=== PATIENT | female | born 1975 | race Two or more races ===

== ENCOUNTER 2023-09-19 09:43 | Emergency (ER) | payer BC, SELFPAY ==
[2023-09-19 09:46] VITALS: BP 102/70
--- NOTE | 2023-09-19 10:57 | ED.GENMED ---
Addendum entered and electronically signed by Jose Elias Florez DO 09/20/23 16:11:
late entry
dave by myself prior to dc, i reevaluated pt, she was feeling much better after IVF
she will try meclizine and continue vestibular PT
Original Note:
History of Present Illness
<Konstantin Munroe MD, Resident - Last Filed: 09/19/23 14:23>
General
Chief Complaint: Dizziness
Source: patient
Time Seen by Provider: 09/19/23 10:28
History of Present Illness
History of Present Illness:
47-year-old female with history of JOSH and vitamin D deficiency presents to the ED with complaints of dizziness. Patient states that since April she has been experiencing dizziness. She describes dizziness as room spinning which close when she
gets up from her bed and changes of position from sitting to standing. She also feels the room is spinning when she looks up at the cabinet to grab something or turning her head towards the side. Patient states that she was evaluated by her PCP
and was dx with peripheral vertigo. She did physiotherapy which helped a little. She was not prescribed any medication. She admits to bandlike pressure sensation over frontotemporal. She denies double vision, blurry vision, weakness, nausea,
vomiting, neck pain. Patient states that she experiences dizziness with brisk walking for a mile and becomes off balance.
If applicable-neuro sx onset
Date of onset of symptoms: 04/14/23
Past History
<Konstantin Munroe MD, Resident - Last Filed: 09/19/23 14:23>
Past History
ED Past Medical History: None and Other
Phy Exam
<Konstantin Munroe MD, Resident - Last Filed: 09/19/23 14:23>
General Physical Exam
General Presentation: well appearing and no apparent distress
General age: appears stated age
General Habitus: normal
General Mental: alert
General Hydration: appears well hydrated
ENT Exam
ENT Exam: TM's normal
Eye Exam
Eye Exam: PERRL and other (horizontal nystagmus, no vertical nystagmus, no skew )
Eye Exam General: lateral nystagmus: bilateral
Cardiovascular Exam
Cardiovascular Exam: regular rate/rhythm and no murmur
Pulmonary Exam
Pulmonary Exam: lungs clear
Gastrointestinal Exam
Gastrointestinal Exam: normal bowel sounds, non tender, soft and non distended
Course
<Konstantin Munroe MD, Resident - Last Filed: 09/19/23 14:23>
Orders/Labs/Results
Orders:
Orders
09/19/23 09:49
Electrocardiogram (*1) Urgent
Reason for Study: Chest Pain
EKG- Treatment ONCE
09/19/23 10:55
Meclizine [Antivert] 25 mg PO NOW STA
09/19/23 10:56
CT Head W/o Iv Contrast Urgent
Comment:
Reason For Exam: dizziness
09/19/23 11:09
0.9% Sodium Chloride 1000 ml [Nss] 1,000 ml IV BOLUS
09/19/23 11:19
Complete Blood Count/With Diff Urgent
Comprehensive Metabolic Panel Urgent
Ferritin Urgent
09/19/23 13:24
US Abdomen Complete/Upper Urgent
Reason For Exam: elevated LFts
Abnormal Lab Results
09/19/23
11:19
Hgb 10.6 L g/dL
(12.0-16.0)
Hct 32.7 L %
(37.0-47.0)
MCV 77.9 L fL
(81.0-99.0)
MCH 25.2 L pg
(27.0-31.0)
MCHC 32.4 L g/dL
(33.0-37.0)
RDW 17.4 H %
(11.5-14.5)
AST 77 H U/L
(14-36)
ALT 73 H U/L
(0-35)
09/19/23 11:19
09/19/23 11:19
Vital Signs
Initial and Last Documented VS:
Initial Vital Signs
Temp Pulse Resp BP Pulse Ox
98 F 80 16 102/70 99
09/19/23 09:46 09/19/23 09:46 09/19/23 09:46 09/19/23 09:46 09/19/23 09:46
Last Documented Vital Signs
Temp Pulse Resp BP Pulse Ox
98 F 74 16 112/72 98
09/19/23 09:46 09/19/23 13:31 09/19/23 13:31 09/19/23 13:31 09/19/23 13:31
<Jose Elias Florez, DO - Last Filed: 09/19/23 11:07>
Orders/Labs/Results
Orders:
Orders
09/19/23 09:49
Electrocardiogram (*1) Urgent
Reason for Study: Chest Pain
EKG- Treatment ONCE
09/19/23 10:55
Meclizine [Antivert] 25 mg PO NOW STA
09/19/23 10:56
CT Head W/o Iv Contrast Urgent
Comment:
Reason For Exam: dizziness
09/19/23 11:09
0.9% Sodium Chloride 1000 ml [Nss] 1,000 ml IV BOLUS
09/19/23 11:19
Complete Blood Count/With Diff Urgent
Comprehensive Metabolic Panel Urgent
Ferritin Urgent
09/19/23 13:24
US Abdomen Complete/Upper Urgent
Reason For Exam: elevated LFts
Abnormal Lab Results
09/19/23
11:19
Hgb 10.6 L g/dL
(12.0-16.0)
Hct 32.7 L %
(37.0-47.0)
MCV 77.9 L fL
(81.0-99.0)
MCH 25.2 L pg
(27.0-31.0)
MCHC 32.4 L g/dL
(33.0-37.0)
RDW 17.4 H %
(11.5-14.5)
AST 77 H U/L
(14-36)
ALT 73 H U/L
(0-35)
09/19/23 11:19
09/19/23 11:19
Vital Signs
Initial and Last Documented VS:
Initial Vital Signs
Temp Pulse Resp BP Pulse Ox
98 F 80 16 102/70 99
09/19/23 09:46 09/19/23 09:46 09/19/23 09:46 09/19/23 09:46 09/19/23 09:46
Last Documented Vital Signs
Temp Pulse Resp BP Pulse Ox
98 F 74 16 112/72 98
09/19/23 09:46 09/19/23 13:31 09/19/23 13:31 09/19/23 13:31 09/19/23 13:31
<Konstantin Munroe MD, Resident - Last Filed: 09/19/23 14:23>
*Critical Care Note
Total Time (30-74mins, 75-104mins- exclusive of procedures): Not Applicable
<Konstantin Munroe MD, Resident - Last Filed: 09/19/23 14:23>
Update Note
Update Note:
47 year old female presented to the ED with dizziness describe as room spinning with change in position.
D/D
#1 peripheral vertigo more likely
#2 central vertigo
- EKG shows normal sinus rhythm
- Head CT for reassurance and to r/o hemorrhage.
- CBC, CMP for baseline
- Trial of PO meclizine 25 mg.
- Orthostatic vitals - IV fluids given 1 L
- Abdominal US for elevated LFTs to r/o fatty liver disease.
- Head CT normal, patient is ok to discharge
- Script for meclizine 25 mg twice a day as needed
- F/u outpatient with PCP and ENT . Patient requested ENT referral.
FINDINGS:
Transabdominal grayscale ultrasound of the abdomen was obtained.
The liver is normal.
There is normal flow in the portal and hepatic veins
The spleen is normal.
The gallbladder is well visualized and is normal.
There is no dilatation of the common or intrahepatic ducts.
The common duct measures 3.5 mm.
The kidneys are normal in size contour and echogenicity bilaterally.
There is no hydronephrosis.
The pancreas, upper abdominal aorta and upper inferior vena cava are normal.
IMPRESSION: Normal.
ED Attending Note
<Konstantin Munroe MD, Resident - Last Filed: 09/19/23 14:23>
-
Portions of this chart may have been created with voice recognition software.� Occasional wrong word or��sound alike� substitutions may have occurred due to the inherent limitations of voice recognition software.
<Jose Elias Florez DO - Last Filed: 09/19/23 11:07>
ED Attending Note
Patient seen and examined by attending physician: Yes
I performed the substantive portion of visit, reviewed & personally made and approve the management plan that is documented in note by myself or ARTIE.: Yes
I performed a history and physical exam of patient and discussed management with resident, I reviewed resident's note and agree with documented findings and plan of care.: Yes
ED Attending Note:
With family practice resident, agree with assessment and plan well-appearing female who is already gone through vestibular therapy PCP sent for labs and symptoms of vertigo
Discharge Plan
Departure
Patient Disposition: Home (Routine Discharge)
Date of Disposition: 09/19/23
Time of Disposition: 14:19
Patient with high blood pressure during this ER visit?: No
Discharge Problem:
Vertigo
Instructions: Vestibular Exercises, Vertigo ED
Prescriptions:
New
meclizine 25 mg tablet
25 mg PO BID PRN (Reason: dizziness) 10 Days Qty: 20 0RF
Referrals:
Liban Rubi MD [Family Provider] -
Tuan Lowe MD [Active] - Follow up in 1 week
Interventions
Interventions:
*Risk Screen - Suicide Last Done: 09/19/23 09:46
*General Assessment Last Done: 09/19/23 09:46
*Neglect/Abuse Screening Last Done: 09/19/23 09:46
*ED COVID-19 Vaccine History Last Done: 09/19/23 11:19
ED- Neurological Assessment Last Done: 09/19/23 11:00
ED- Cardiac Assessment Last Done: 09/19/23 11:00
ED Swallowing Screen Last Done: 09/19/23 13:31
Discharge Date and Time
Print Language: TANZANIAN
[2023-09-19 11:04] VITALS: BP 100/72; BP 105/74; BP 87/63; PULSE 75; PULSE 76; PULSE 78
[2023-09-19] MEDS: NSS 1000 IV (11:12)
[2023-09-19 11:19] VITALS: BMI 27.1
[2023-09-19 11:33] LABS: % Basophils 0.6 % (0-2); % Eosinophils 1.8 % (0-6); % Immature Granulocytes 0.2 % (0-0.5); % Lymphocytes 35.3 % (20.5-51.1); % Monocytes 8.7 % (1.7-9.3); % Neutrophils 53.4 % (42.2-75.2); Absolute Eosinophils 0.1 10^3/uL (0-0.7); Absolute Lymphocytes 2.2 10^3/uL (1.2-3.4); Absolute Monocytes 0.5 10^3/uL (0.1-0.6); Absolute Neutrophils 3.3 10^3/uL (1.4-6.5); Hematocrit 32.7 % (37.0-47.0); Hemoglobin 10.6 g/dL (12.0-16.0); Mean Corp Hgb Conc. 32.4 g/dL (33.0-37.0); Mean Corpuscular Hgb 25.2 pg (27.0-31.0); Mean Corpuscular Volume 77.9 fL (81.0-99.0); Nucleated Red Blood Cells % 0 %; Platelet Count 322 10^3/uL (130-400); Red Cell Dist. Width 17.4 % (11.5-14.5); White Blood Cell Count 6.2 10^3/uL (4.8-10.8)
[2023-09-19 11:47] LABS: ALT (SGPT) 73 U/L (0-35); AST (SGOT) 77 U/L (14-36); Albumin 4.5 g/dl (3.5-5.0); Alkaline Phosphatase 121 U/L (38-126); Blood Urea Nitrogen 12 mg/dl (7-17); Calcium 9.6 mg/dl (8.4-10.2); Carbon Dioxide 27 mmol/L (22-30); Chloride 106 mmol/L (98-107); Estimated Creatinine Clearance 98 ml/min; Glucose 95 mg/dl (70-99); Potassium 4.4 mmol/L (3.5-5.1); Sodium 140 mmol/L (135-145); Total Bilirubin 0.6 mg/dl (0.2-1.3); Total Protein 7.2 g/dl (6.3-8.2); eGFR > 60.00
[2023-09-19 12:19] LABS: Ferritin 8.4 ng/ml (6.24-137)
[2023-09-19 13:31] VITALS: BP 112/72
--- NOTE | 2023-09-19 13:34 | EDRN ---
This RN spoke to Dr. Phelan about discharge. Pt is not to be discharged until US results.
== END 2023-09-19 14:25 | disposition home or self-care (01) ==
LOC: EMR 09:43
PROVIDERS: Student in an Organized Health Care Education/Training Program; EMERGENCY PHYSICIAN Emergency Medicine; FAMILY PHYSICIAN Family Medicine
DX: R42 Dizziness and giddiness (principal); E55.9 Vitamin D deficiency, unspecified; Z88.6 Allergy status to analgesic agent
CPT/HCPCS: 99284; 96360; 70450; 76700; 80053; 82728; 85025; 93005

== ENCOUNTER → 2024-01-31 09:30 | Outpatient (REF) | payer BC, SELFPAY ==
[2024-01-31 09:45] VITALS: BP 113/81; BP_SYST 93
== END ==
LOC: RADI 09:30
PROVIDERS: ATTENDING PHYSICIAN Nurse Practitioner Family; FAMILY PHYSICIAN Family Medicine
DX: E04.2 Nontoxic multinodular goiter (principal)
CPT/HCPCS: 88173; 10005; 10006

== ENCOUNTER 2024-11-08 10:34 | Emergency (ER) | payer BC, SELFPAY ==
[2024-11-08 10:35] VITALS: BP 117/68
--- NOTE | 2024-11-08 12:27 | ED.GENMED ---
History of Present Illness
General
Chief Complaint: Vaginal Bleeding
Source: patient
Exam Limitations: none
Time Seen by Provider: 11/08/24 12:09
Nursing documentation reviewed up to this point in time: agreed with
History of Present Illness
History of Present Illness:
49-year-old female who presents with a chief complaint of sudden onset heavy vaginal bleeding two nights ago, following a normal menstrual period that ended about a week prior. She describes the bleeding as starting abruptly and heavily, accompanied
by large clots. She reports having to change pads every 15 minutes during the initial episode. Yesterday, the bleeding improved but resumed heavily this morning with a gush upon waking, followed by continued heavy bleeding and additional clots.
Since the initial gush this a.m., has used 3 pads.
The patient has a history of heavy menstrual periods for the past six months and was diagnosed with uterine fibroids through ultrasonography. She previously received a Levonorgestrel-releasing intrauterine device (IUD) insertion about three months
ago at [facility], which initially reduced her bleeding to slight spotting between periods. In addition to the bleeding issues, the patient also experiences back pain described as uncomfortable but denies severe cramping. She feels weak, dizzy,
and lightheaded. The patient takes iron supplements once a week for presumed iron deficiency anemia.
Past History
Past History
ED Past Medical History: Other (Iron deficiency anemia)
ED Past Surgical History: None
Social History
Tobacco: Non-smoker
Alcohol: None
Personal:
Living: with family
Employment: Employed ([employer])
Review of Systems
Review of Systems
Allergies reviewed?: Yes
All Other Systems: ROS reviewed and negative except as documented in HPI and ROS
Constitutional: Denies fatigue
Respiratory: Denies trouble breathing
Cardiac: Denies chest pain
ABD/GI: Denies abdominal pain
: Reports bleeding
Neurological: Reports weakness (lightheaded)
Phy Exam
Physical Exam
Physical Exam:
GENERAL: No acute distress. A&Ox3.
CONSTITUTIONAL: Afebrile.
EYES: clear, conjunctivae normal
ENMT: moist mucus membranes, Pharynx nl
RESPIRATORY: Regular respirations, nonlabored, lungs clear.
CARDIOVASCULAR: Regular rate and rhythm, no murmurs, no rubs.
GI: Soft, nontender, normal BS
: Currently patient is wearing a pad but has no blood on it.
MUSCULOSKELETAL: Moves with ease. Well perfused.
SKIN: Warm, dry, normal
PSYCH: Normal mood and affect. Well kept, interactive and appropriate
NEUROLOGIC: Awake, alert and oriented. No focal neurological deficits
Course
Orders/Labs/Results
Orders:
Orders
11/08/24 12:23
Test Result ONCE
US Pelvis W Transvag Combined Urgent
Comment:
Reason For Exam: heavy bleed w clots, recent IUD
11/08/24 12:25
0.9% Sodium Chloride 1000 ml [Nss] 1,000 ml IV BOLUS
11/08/24 12:45
Complete Blood Count/With Diff Urgent
Comprehensive Metabolic Panel Urgent
HCG, Serum Qualitative Screen Urgent
Abnormal Lab Results
11/08/24
12:45
RBC 4.14 L 10^6/uL
(4.20-5.40)
Hgb 10.3 L g/dL
(12.0-16.0)
Hct 32.8 L %
(37.0-47.0)
MCV 79.2 L fL
(81.0-99.0)
MCH 24.9 L pg
(27.0-31.0)
MCHC 31.4 L g/dL
(33.0-37.0)
RDW 17.1 H %
(11.5-14.5)
AST 46 H U/L
(14-36)
11/08/24 12:45
11/08/24 12:45
Vital Signs
Initial and Last Documented VS:
Initial Vital Signs
Temp Pulse Resp BP Pulse Ox
98.1 F 96 18 117/68 100
11/08/24 10:35 11/08/24 10:35 11/08/24 10:35 11/08/24 10:35 11/08/24 10:35
Last Documented Vital Signs
Temp Pulse Resp BP Pulse Ox
98.1 F 74 20 107/72 96
11/08/24 10:35 11/08/24 16:02 11/08/24 16:02 11/08/24 15:22 11/08/24 16:02
MDM/Problems Addressed
Differential Diagnosis Includes:
DUB, uterine fibroids, displaced IUD, acute blood loss anemia
MDM/Problems Addressed:
49-year-old female who presents with a chief complaint of sudden onset heavy vaginal bleeding two nights ago, following a normal menstrual period that ended about a week prior. She describes the bleeding as starting abruptly and heavily, accompanied
by large clots. She reports having to change pads every 15 minutes during the initial episode. Yesterday, the bleeding improved but resumed heavily this morning with a gush upon waking, followed by continued heavy bleeding and additional clots.
Since the initial gush this a.m., has used 3 pads.
The patient has a history of heavy menstrual periods for the past six months and was diagnosed with uterine fibroids through ultrasonography. She previously received a Levonorgestrel-releasing intrauterine device (IUD) insertion about three months
ago at [facility], which initially reduced her bleeding to slight spotting between periods. In addition to the bleeding issues, the patient also experiences back pain described as uncomfortable but denies severe cramping. She feels weak, dizzy,
and lightheaded. The patient takes iron supplements once a week for presumed iron deficiency anemia.
CBC: No clinically significant abnormality, consistent with her chronic anemia
CMP normal
hCG negative
3:00 p.m.
Ultrasound pelvis with transvaginal radiology report read: IMPRESSION:
IUD present. Appropriately positioned.
Myomatous uterus. None appear submucosal.
Mild free fluid in the pelvis likely physiologic. A recently ruptured ovarian cyst cannot be excluded.
Patient has had no significant bleeding since arrival, changed pad once for 'normal amount of period' bleeding.
Rx for Lysteda sent to her pharmacy.
Given copies of her ultrasound report and lab work, she will follow-up with her [employer] doctor at [facility] after the holiday weekend
*Pulse Oximetry
SaO2: 100
Oxygen Mode of Delivery: Room air
Patient hypoxic: not evaluated
*Critical Care Note
Total Time (30-74mins, 75-104mins- exclusive of procedures): Not Applicable
ED Attending Note
-
Portions of this chart may have been created with voice recognition software.� Occasional wrong word or��sound alike� substitutions may have occurred due to the inherent limitations of voice recognition software.
Discharge Plan
Departure
Patient Disposition: Home (Routine Discharge)
Date of Disposition: 11/08/24
Time of Disposition: 15:20
Patient with high blood pressure during this ER visit?: No
Condition: Good
Discharge Problem:
Abnormal vaginal bleeding, Uterine fibroid
Instructions: Uterine fibroids, Heavy Periods (DC)
Prescriptions:
New
tranexamic acid 650 mg tablet
1,300 mg PO DAILY 5 Days Qty: 10 0RF
No Action
meclizine 25 mg tablet
25 mg PO BID PRN (Reason: dizziness) 10 Days Qty: 20 0RF
ferrous sulfate [iron] 325 mg (65 mg iron) Tablet
325 mg PO DAILY
cholecalciferol (vitamin D3) [Vitamin D3] 25 mcg (1,000 unit) Capsule
25 mcg PO DAILY
vitamin [id number] acid 0.5-1 mg Tablet
1 tab PO DAILY
acetaminophen 325 mg Capsule
650 mg PO Q6H PRN (Reason: mild pain)
Referrals:
Your, [facility] [employer]USB[employer] WORK[employer] Doctor [Other] - Next open appointment
Liban Rubi MD [Family Provider, [facility]]
Activity Restrictions/Additional Instructions:
As we discussed, call your [employer]USB[employer] doctor after the holiday weekend and inform of today's visit and ultrasound results.
Your CT scan shows fibroids and your IUD is in proper place.
I sent a prescription to your pharmacy for Lysteda which can be used for heavy vaginal bleeding. If you start to bleed heavily with clots again start the Lysteda and you can take it for up to 5 days in a row. If your bleeding slows down you may
stop it.
You may return here at any time for worse bleeding/clots despite taking the Lyseda, or feeling worse in any way.
Interventions
Interventions:
*Risk Screen - Suicide Last Done: 11/08/24 10:35
*General Assessment Last Done: 11/08/24 12:30
*Neglect/Abuse Screening Last Done: 11/08/24 12:30
*ED COVID-19 Vaccine History Last Done: 11/08/24 12:30
*Nursing Disposition Last Done: 11/08/24 16:02
ED-Female Genitourinary Assessment Last Done: 11/08/24 12:30
Discharge Date and Time
Discharge Date/Time: 11/08/24 16:03
Print Language: [id number]
[2024-11-08] MEDS: NSS 1000 IV (12:46)
[2024-11-08 12:47] VITALS: BP 102/62
[2024-11-08 12:56] LABS: Hematocrit 32.8 % (37.0-47.0); Hemoglobin 10.3 g/dL (12.0-16.0); Mean Corp Hgb Conc. 31.4 g/dL (33.0-37.0); Mean Corpuscular Volume 79.2 fL (81.0-99.0); Nucleated Red Blood Cells % 0 %; Platelet Count 333 10^3/uL (130-400); Red Cell Dist. Width 17.1 % (11.5-14.5)
[2024-11-08 13:00] VITALS: BP 93/77
[2024-11-08 13:23] LABS: HCG, Serum Qualitative Screen Negative
[2024-11-08 13:27] LABS: ALT (SGPT) 29 U/L (0-35); AST (SGOT) 46 U/L (14-36); Albumin 4.7 g/dl (3.5-5.0); Alkaline Phosphatase 102 U/L (38-126); Blood Urea Nitrogen 7 mg/dl (7-17); Calcium 9.4 mg/dl (8.4-10.2); Carbon Dioxide 26 mmol/L (22-30); Chloride 107 mmol/L (98-107); Glucose 87 mg/dl (70-99); Potassium 4.5 mmol/L (3.5-5.1); Sodium 139 mmol/L (135-145); Total Protein 7.6 g/dl (6.3-8.2); eGFR > 60.00
[2024-11-08 15:22] VITALS: BP 107/72
== END 2024-11-08 16:03 | disposition home or self-care (01) ==
LOC: EMR 10:34
PROVIDERS: Registered Nurse; EMERGENCY PHYSICIAN Emergency Medicine; FAMILY PHYSICIAN Family Medicine
DX: D25.9 Leiomyoma of uterus, unspecified (principal); N93.8 Other specified abnormal uterine and vaginal bleeding
CPT/HCPCS: 99284; 96360; 76830; 76856; 80053; 84703; 85025